=== PATIENT | female | born 1950 | race Caucasian/White ===

== ENCOUNTER 2016-07-02 11:17 | Outpatient (CLI) ==
[2016-04-08 07:38] VITALS: BMI 27.3
[2016-07-02 13:06] LABS: FLU INTERNAL QC INTERNAL QC VALID; RAPID FLU A NEGATIVE (NEGATIVE); RAPID FLU B NEGATIVE (NEGATIVE)
== END 2016-07-02 11:18 | disposition home or self-care (01) ==
LOC: LAB 11:17
PROVIDERS: ATTEND Nurse Practitioner Family
DX: R53.83 Other fatigue (principal); R50.9 Fever, unspecified
CPT/HCPCS: 87651; 87804; 87880

== ENCOUNTER 2017-04-08 16:16 | Outpatient (CLI) ==
[2016-04-08 07:38] VITALS: BMI 27.3
[2017-04-08 16:36] LABS: FLU INTERNAL QC INTERNAL QC VALID; MOLECULAR FLU A POSITIVE BY NAAT (NEGATIVE); MOLECULAR FLU B NEGATIVE BY NAAT (NEGATIVE)
== END 2017-04-08 16:17 | disposition home or self-care (01) ==
LOC: LAB 16:16
PROVIDERS: ATTEND Nurse Practitioner Family
DX: R68.89 Other general symptoms and signs (principal)
CPT/HCPCS: 87502

== ENCOUNTER 2018-08-19 12:34 | Outpatient (CLI) ==
[2016-04-08 07:38] VITALS: BMI 27.3
--- NOTE | 2018-08-19 13:05 | CT ---
EXAM: CT BRAIN HISTORY: Headache TECHNIQUE: CT brain without intravenous contrast. 5-mm axial sections with Reformations. COMPARISON: None FINDINGS: Brain is unremarkable without evidence of hemorrhage or large vessel distribution recent ischemic in farction. There is no suggestion of acute hydrocephalus or subdural fluid collection. No mass or ma ss effect. Cranium has no acute finding. Mastoid processes are aerated. The visualized paranasal sinuses are clear. IMPRESSION: No acute intracranial process.
== END 2018-08-19 12:35 | disposition home or self-care (01) ==
LOC: RAD 12:34
PROVIDERS: ATTEND Nurse Practitioner Family
DX: R51 Headache (principal)

== ENCOUNTER 2018-08-23 10:52 | Outpatient (CLI) | payer BC, OTHER ==
[2016-04-08 07:38] VITALS: BMI 27.3
== END 2018-08-23 10:53 | disposition home or self-care (01) ==
LOC: RHC-LAB 10:52 → FCC-LAB 10:53
PROVIDERS: ATTEND Nurse Practitioner Family
DX: R51 Headache (principal); Z00.00 Encounter for general adult medical examination without abnormal findings; E66.3 Overweight; Z82.49 Family history of ischemic heart disease and other diseases of the circulatory system
CPT/HCPCS: 36415; 80053; 80061; 85025; 85651